=== PATIENT | female | born 1965 | race Caucasian/White ===

== ENCOUNTER → 2021-12-12 | Outpatient (CLI) | payer OTHER ==
[~2021-12-12] MED LIST: ERGO500029 PO; LEVO75TA4 PO; LISI10TA24 PO; LOVA20TA2 PO; METF500T13 PO; OMEP-173 PO; PROBCAP14 PO
== END ==
LOC: M LABSMTC 09:13
PROVIDERS: ATTEND Anesthesiology
DX: Z01.812 Encounter for preprocedural laboratory examination (principal)

== ENCOUNTER → 2021-12-12 | Outpatient (CLI) | payer OTHER | LOC: M EKG 09:42 | PROVIDERS: ATTEND Anesthesiology | DX: I10 Essential (primary) hypertension (principal) ==

== ENCOUNTER 2022-02-25 09:49 | Day surgery (SDC) | payer OTHER ==
[~2022-02-25] VITALS: Ht 154.9 cm; Wt 98.0 kg
[~2022-02-25 09:49] MED LIST changes: +dexameTHASONE 4 MG/ML 1ML VIAL (J1100 PER 1MG) IV ONE
[2022-02-25] MEDS ORDERED: LR 1,000 ML IV SCH ×3 (10:10→14:35)
[2022-02-25] MEDS ORDERED: LIDOCAINE W/EPINEPHRINE 1% 20ML VIAL As Ordered ONE (11:29)
[2022-02-25] MEDS ORDERED: ONDANSETRON 4MG 2ML VIAL As Ordered ONE (11:59)
[2022-02-25] MEDS ORDERED: ROCURONIUM BROMIDE 50 MG/5 ML VIAL As Ordered ONE ×2 (11:59→12:18)
[2022-02-25] MEDS ORDERED: SUGAMMADEX SODIUM 500 MG/5 ML VIAL (BRIDION) As Ordered ONE (11:59)
[2022-02-25] MEDS ORDERED: METOCLOPRAMIDE INJ 10MG/2ML VIAL (J2765 PER 1) As Ordered ONE (11:59)
[2022-02-25] MEDS ORDERED: dexameTHASONE 4 MG/ML 1ML VIAL (J1100 PER 1MG) As Ordered ONE (11:59)
[2022-02-25] MEDS ORDERED: LIDOCAINE 2% 100MG/5ML SDV (FOR ANES.) As Ordered ONE (11:59)
[2022-02-25] MEDS ORDERED: MIDAZOLAM INJ 2MG/2ML VIAL (J2250 PER 1MG) As Ordered ONE (11:59)
[2022-02-25] MEDS ORDERED: ACETAMINOPHEN 1000MG 100ML IV BTL (OFIRMEV) (J0131 PER 10MG) As Ordered ONE (11:59)
[2022-02-25] MEDS ORDERED: propofoL 200 MG/20 ML VIAL As Ordered ONE (11:59)
[2022-02-25] MEDS ORDERED: fentaNYL 100 MCG/2 ML INJECTION As Ordered ONE ×2 (11:59→13:12)
[2022-02-25] MEDS ORDERED: BACITRACIN OINTMENT 30GM TUBE As Ordered ONE (13:58)
[2022-02-25] MEDS ORDERED: ONDANSETRON 4MG 2ML VIAL IV PRN (14:00)
[2022-02-25] MEDS ORDERED: oxyCODONE 5MG TAB PO PRN (14:00)
[2022-02-25] MEDS ORDERED: fentaNYL 100 MCG/2 ML INJECTION IV PRN (14:00)
[2022-02-25] MEDS ORDERED: METOCLOPRAMIDE INJ 10MG/2ML VIAL (J2765 PER 1) IV PRN (14:00)
[2022-02-25 15:38] VITALS: BP 156/82
== END 2022-02-25 15:50 | disposition home or self-care (01) ==
LOC: M SDC 09:49
PROVIDERS: ATTEND Otolaryngology
DX: Q89.2 Congenital malformations of other endocrine glands (principal); E03.9 Hypothyroidism, unspecified; I10 Essential (primary) hypertension; E11.9 Type 2 diabetes mellitus without complications; K21.9 Gastro-esophageal reflux disease without esophagitis; E78.5 Hyperlipidemia, unspecified; E55.9 Vitamin D deficiency, unspecified; Z79.899 Other long term (current) drug therapy; Z79.84 Long term (current) use of oral hypoglycemic drugs; Z79.890 Hormone replacement therapy; Z91.018 Allergy to other foods
CPT/HCPCS: 60280; 88305; J0131; J1100; J2250; J2405; J2765; J3010